=== PATIENT | female | born 1965 | race Caucasian/White ===

== ENCOUNTER 2018-10-25 14:31 | Inpatient (IN) | payer SELFPAY ==
[~2018-10-25] VITALS: Ht 160 cm; Wt 64.9 kg
[2018-10-25 15:57] LABS: CLARITY URINE CLEAR (CLEAR); COLOR URINE YELLOW (YELLOW); KETONES URINE NEGATIVE (NEGATIVE); LEUKOCYTE ESTERASE URINE NEGATIVE (NEGATIVE); NITRITE URINE POSITIVE (NEGATIVE); OCCULT BLOOD URINE 2+ (NEGATIVE); PH URINE 7.5 (4.5-8.0); PROTEIN URINE NEGATIVE (NEGATIVE); SPECIFIC GRAVITY URINE 1.012 (1.005-1.030); UROBILINOGEN URINE 0.2 E.U./dL (0.2-1.0)
[2018-10-25] MEDS ORDERED: ASPIRIN 81MG TABLET PO ONE (22:30)
[2018-10-25 23:13] LABS: BASOPHILS % 0.9 % (0.0-2.0); EOSINOPHILS % 0.5 % (0.0-5.0); HEMATOCRIT. 30.7 % (36.0-48.0); LYMPHOCYTES % 35.4 % (20.0-50.0); MEAN CORPUSCULAR HEMOGLOBIN 26.8 pg (28.0-32.0); MEAN CORPUSCULAR VOLUME 82.1 fL (81.0-99.0); MEAN PLATELET VOLUME 8.4 fl (7.4-10.4); MONOCYTES % 10.6 % (2.0-8.0); NEUTROPHILS % 52.6 % (40.0-76.0); PLATELET 231 x1000/uL (130-400); RED BLOOD CELL COUNT 3.74 mill/uL (4.2-5.4); RED CELL DISTRIBUTION WIDTH 16.7 % (11.6-14.6)
[2018-10-25 23:16] LABS: CHLORIDE 107 mEq/L (98-107)
[2018-10-25 23:24] LABS: D-DIMER 3.26 mg/L FEU (<0.50); PARTIAL THROMBOPLASTIN TIME 23.7 sec (23.4-31.0); PROTHROMBIN TIME 10.2 sec (9.1-11.1)
[2018-10-25 23:29] LABS: HCG SCREEN NEGATIVE
[2018-10-25] MEDS ORDERED: CEFTRIAXONE 1 G PREMIX 50 ML IV ONE (23:45)
[2018-10-26] MEDS ORDERED: HYDROCODONE/ACETAMINOPHEN 5/325MG TABLET PO PRN ×2 (00:15)
[2018-10-26] MEDS ORDERED: DOCUSATE SODIUM 100MG CAPSULE PO PRN ×2 (00:15)
[2018-10-26] MEDS ORDERED: IPRATROPIUM/ALBUTEROL 0.5-3(2.5)MG/3ML NEB INH PRN ×2 (00:15)
[2018-10-26] MEDS ORDERED: MAGNESIUM/ALUMINUM HYDROXIDE/SIMETHICONE 30ML UDC PO PRN ×2 (00:15)
[2018-10-26] MEDS ORDERED: ENOXAPARIN 40MG/0.4ML SYR SUBCUT SCH (00:15)
[2018-10-26] MEDS ORDERED: LORAZEPAM 2MG/ML CPJ IV PRN (00:15)
[2018-10-26] MEDS ORDERED: DIPHENHYDRAMINE 50MG/ML VIAL IV PRN ×2 (00:15)
[2018-10-26] MEDS ORDERED: ACETAMINOPHEN 325MG TABLET PO PRN ×2 (00:15)
[2018-10-26] MEDS ORDERED: ONDANSETRON HCL 4MG/2ML INJ IV PRN ×2 (00:15)
[2018-10-26] MEDS ORDERED: HYDROMORPHONE HCL/PF 2MG/ML CPJ IV PRN (00:15)
[2018-10-26] MEDS ORDERED: CLONIDINE 0.1MG TABLET PO PRN ×2 (00:15)
[2018-10-26] MEDS ORDERED: NA PHOS,M-B/NA PHOS,DI-BA ENEMA 118ML PR PRN (00:15)
[2018-10-26] MEDS ORDERED: MORPHINE SULFATE 4 MG/ML CPJ (NOT FOR IM USE) IV PRN (00:15)
[2018-10-26] MEDS ORDERED: GUAIFENESIN 200MG/10ML SUGAR FREE UDC PO PRN ×2 (00:15)
[2018-10-26] MEDS ORDERED: IOHEXOL-350 100 ML BOTTLE ONE (01:36)
[2018-10-26 02:40] LABS: CHLORIDE 109 mEq/L (98-107)
[2018-10-26] MEDS ORDERED: ASPIRIN 81MG EC TABLET PO SCH (09:00)
[2018-10-26] MEDS: ASPIRIN 81MG EC TABLET PO SCH (09:54)
[2018-10-26] MEDS: ENOXAPARIN 40MG/0.4ML SYR SUBCUT SCH (09:55)
[2018-10-26 10:00] VITALS: BP 113/67
[2018-10-26 12:00] VITALS: BP 93/58
[2018-10-26 16:00] VITALS: BP 98/60
[2018-10-26 18:31] LABS: LDL CHOLESTEROL 96 mg/dL (5-100)
[2018-10-26 18:33] LABS: HDL CHOLESTEROL 47 mg/dL (40-59)
[2018-10-26 20:00] VITALS: BP 106/70
[2018-10-27 00:02] VITALS: BP 100/63
[2018-10-27 04:00] VITALS: BP 99/64
[2018-10-27 06:15] LABS: EOSINOPHILS % 0.8 % (0.0-5.0); HEMATOCRIT. 31.6 % (36.0-48.0); HEMOGLOBIN. 10.2 g/dL (12.0-16.0); MEAN CORPUSCULAR HEMOGLOBIN 26.4 pg (28.0-32.0); MEAN CORPUSCULAR VOLUME 81.7 fL (81.0-99.0); MONOCYTES % 10.2 % (2.0-8.0); PLATELET 246 x1000/uL (130-400); RED BLOOD CELL COUNT 3.86 mill/uL (4.2-5.4); RED CELL DISTRIBUTION WIDTH 16.3 % (11.6-14.6)
[2018-10-27 06:33] LABS: CHLORIDE 107 mEq/L (98-107)
[2018-10-27 06:57] LABS: LDL CHOLESTEROL 111 mg/dL (5-100)
[2018-10-27 06:59] LABS: HDL CHOLESTEROL 51 mg/dL (40-59); T4 FREE 0.81 ng/dL (0.76-1.46)
[2018-10-27 08:00] VITALS: BP 105/73
[2018-10-27] MEDS: ENOXAPARIN 40MG/0.4ML SYR SUBCUT SCH (08:38)
[2018-10-27] MEDS: ASPIRIN 81MG EC TABLET PO SCH (08:38)
[2018-10-27 12:00] VITALS: BP 104/66
[2018-10-27 12:56] VITALS: BP 104/66
== END 2018-10-27 14:03 | disposition home or self-care (01) | DRG 198 ==
LOC: ER 14:31 → 7WST 23:55 → EDBEDREQTM 23:59 → EDBEDREQ 23:59 → ENRESERV 10-26 08:00
PROVIDERS: ADMIT Internal Medicine; ATTEND Internal Medicine
DX: R07.9 Chest pain, unspecified (principal); I25.10 Atherosclerotic heart disease of native coronary artery without angina pectoris; I11.0 Hypertensive heart disease with heart failure; I50.9 Heart failure, unspecified; N39.0 Urinary tract infection, site not specified; Z82.49 Family history of ischemic heart disease and other diseases of the circulatory system; Z98.82 Breast implant status
CPT/HCPCS: 36415; 71045; 71275; 80048; 80061; 83605; 83880; 84439; 84443; 84484; 84703; 85379; 87077; 87186; 93005; 93306; 99285; J0696; J1650; Q9967